=== PATIENT | male | born 1970 | race Caucasian/White ===

== ENCOUNTER 2016-10-05 15:14 | Emergency (ER) | payer OTHER | END 2016-10-05 17:59 | disposition home or self-care (01) | LOC: ER 15:14 | DX: J06.9 Acute upper respiratory infection, unspecified (principal); M79.1 Myalgia; E78.5 Hyperlipidemia, unspecified; F17.210 Nicotine dependence, cigarettes, uncomplicated; Z79.82 Long term (current) use of aspirin; Z79.899 Other long term (current) drug therapy; Z88.6 Allergy status to analgesic agent | CPT/HCPCS: 87502; 87651 ==

== ENCOUNTER 2016-10-15 14:58 | Emergency (ER) | payer MEDICARE | END 2016-10-15 15:59 | disposition home or self-care (01) | LOC: ER 14:58 | DX: S80.812A Abrasion, left lower leg, initial encounter (principal); L03.116 Cellulitis of left lower limb; Z79.82 Long term (current) use of aspirin; Z79.899 Other long term (current) drug therapy; Z88.6 Allergy status to analgesic agent; Z23 Encounter for immunization; W01.0XXA Fall on same level from slipping, tripping and stumbling without subsequent striking against object, initial encounter | CPT/HCPCS: 90471 ==